=== PATIENT | female | born 1985 | race Caucasian/White ===

== ENCOUNTER 2016-09-03 22:35 | Emergency (ER) | payer OTHER ==
[2016-09-03 22:55] VITALS: BP 117/80; PULSE 70; TEMP 97.8; BMI 37.2
--- NOTE | 2016-09-03 23:31 | PDOC ---
History of Present Illness - General History Source: Patient Exam Limitations: No Limitations - History of Present Illness Initial Comments: 09/03/16 23:36 The patient is a 30 year old female with significant past medical history of asthma, gerd, IBS and chronic abdominal pain who presents to the ED for 2 weeks of abdominal pain, nausea and vomiting. Denies diarrhea. Patient also reports developing weakness and dizziness early this morning. The patient denies fever, chills, cough, SOB, chest pain, and palpitations. Allergies: NKDA Social History: No alcohol, tobacco, or drug use reported. Past Surgical History: None reported PCP: Dr. Angela Weinberg <Alejandra Arce - Last Filed: 09/03/16 23:37> - General History Source: Patient <LamonteEdmund roberts - Last Filed: 09/04/16 01:19> - General Chief Complaint: Pain Stated Complaint: PAIN, ACUTE Time Seen by Provider: 09/03/16 23:25 Past History <Alejandra Arce - Last Filed: 09/03/16 23:37> - Past Medical History Anemia: No Asthma: Yes (NO RECENT ATTACK) Cancer: No Cardiac Disorders: No CVA: No COPD: No CHF: No Dementia: No Diabetes: No GI Disorders: Yes (GERD,IBS,HIATAL HERNIA) Disorders: No HTN: No Hypercholesterolemia: No Liver Disease: No Seizures: No Thyroid Disease: No - Surgical History Abdominal Surgery: No Appendectomy: No Cardiac Surgery: No Cholecystectomy: No Lung Surgery: No Neurologic Surgery: No Orthopedic Surgery: No - Immunization History Immunization Up to Date: Yes - Psycho/Social/Smoking Cessation Hx Anxiety: No Suicidal Ideation: No Smoking Status: No Smoking History: Former smoker Have you smoked in the past 12 months: Yes Number of Cigarettes Smoked Daily: 5 If you are a former smoker, when did you quit?: 2017 Information on smoking cessation initiated: No 'Breaking Loose' booklet given: 06/27/12 Hx Alcohol Use: No Drug/Substance Use Hx: No Substance Use Type: None Hx Substance Use Treatment: No <Edmund Schumacher - Last Filed: 09/04/16 01:19> - Past Medical History Allergies/Adverse Reactions: Allergies Allergy/AdvReac Type Severity Reaction Status Date / Time shellfish derived Allergy Mild Swelling Verified 09/03/16 22:51 [Shellfish Derived] No Known Drug Allergies Allergy Verified 09/03/16 22:51 Home Medications: Ambulatory Orders Ondansetron [Zofran *Odt*] 4 mg SL TID #30 od.tablet 09/04/16 Pantoprazole Sodium [Protonix] 40 mg PO DAILY #30 tablet. 09/04/16 Review of Systems - Review of Systems Able to Perform ROS?: Yes Comments:: 09/03/16 23:36 CONSTITUTIONAL: +generalized weakness Absent: fever, no chills, no fatigue EYES: Absent: visual changes ENT: Absent: ear pain, no sore throat CARDIOVASCULAR: Absent: chest pain, no palpitations RESPIRATORY: Absent: cough, no SOB GI: +abdominal pain, nausea, vomiting Absent: no constipation, no diarrhea GENITOURINARY: Absent: dysuria, no frequency, no hematuria MUSCULOSKELETAL: Absent: back pain, no arthralgia, no myalgia SKIN: Absent: rash NEURO: +dizziness Absent: headache <Alejandra Arce - Last Filed: 09/03/16 23:37> *Physical Exam - Vital Signs Last Vital Signs Temp Pulse Resp BP Pulse Ox 97.8 F 70 17 117/80 98 09/03/16 22:51 09/03/16 22:51 09/03/16 22:51 09/03/16 22:51 09/03/16 22:51 - Physical Exam Comments: 09/03/16 23:36 GENERAL: Well-appearing, well-nourished. No apparent distress. HEENT: Normocephalic, atraumatic. PERRL, EOM intact. CARDIOVASCULAR: Normal S1, S2. Regular rate and rhythm. PULMONARY: Clear to auscultation bilaterally. ABDOMEN: Soft, non-distended, non-tender. EXTREMITIES: Normal ROM in all four extremities. No gross deformities. SKIN: Warm, dry. No rash NEUROLOGICAL: No focal neurological deficits. <Alejandra Arce - Last Filed: 09/03/16 23:37> - Vital Signs Last Vital Signs Temp Pulse Resp BP Pulse Ox 97.8 F 70 17 117/80 98 09/03/16 22:51 09/03/16 22:51 09/03/16 22:51 09/03/16 22:51 09/03/16 22:51 <Edmund Schumacher - Last Filed: 09/04/16 01:19> ED Treatment Course - LABORATORY CBC & Chemistry Diagram: 09/04/16 00:05 09/04/16 00:05 <Edmund Schumacher - Last Filed: 09/04/16 01:19> Medical Decision Making - Medical Decision Making 09/04/16 01:19 Dr. Schumacher: The scribe's documentation has been prepared under my direction and personally reviewed by me in its entirery. I confirm that the note above accurately reflects all work, treatment, procedures, and medical decision making performed by me. <Edmund Schumacher - Last Filed: 09/04/16 01:19> *DC/Admit/Observation/Transfer - Attestations Scribe Attestion: 09/03/16 23:36 Documentation prepared by Alejandra Arce, acting as medical transcription radiology for Edmund Schumacher MD <Alejandra Arce - Last Filed: 09/03/16 23:37> - Discharge Dispostion Admit: No <Edmund Schumacher - Last Filed: 09/04/16 01:19> Diagnosis at time of Disposition: Nausea - Discharge Dispostion Disposition: HOME Condition at time of disposition: Stable - Prescriptions Prescriptions: Pantoprazole Sodium [Protonix] 40 mg PO DAILY #30 tablet. Ondansetron [Zofran *Odt*] 4 mg SL TID #30 od.tablet - Referrals Referrals: Carolann Weinberg [Primary Care Provider] - - Patient Instructions Printed Discharge Instructions: DI for Nausea -- Adult - Post Discharge Activity Work/School Note: Back to Work
[2016-09-03] MEDS ORDERED: ONDANSETRON *ODT* 4 MG TABLET SL ONE (23:32)
[2016-09-03] MEDS ORDERED: ONDANSETRON *ODT* 4 MG TABLET ONE (23:37)
[2016-09-04 00:34] LABS: URINE APPEARANCE CLEAR; URINE BILIRUBIN NEGATIVE (NEGATIVE); URINE BLOOD NEGATIVE (NEGATIVE); URINE COLOR STRAW; URINE GLUCOSE (UA) NEGATIVE (NEGATIVE); URINE KETONE NEGATIVE (NEGATIVE); URINE LEUK ESTERASE NEGATIVE (NEGATIVE); URINE NITRITE NEGATIVE (NEGATIVE); URINE PROTEIN NEGATIVE (NEGATIVE); URINE UROBILINOGEN NEGATIVE E.U./dl (0.2-1.0)
[2016-09-04 00:35] LABS: BASOPHIL 0.5 % (0-2.0); EOSINOPHIL 2.4 % (0-4.5); MCH 26.9 pg (25.7-33.7); MCHC 32.4 g/dl (32.0-36.0); MEAN CELL VOLUME 83.2 fl (80-96); MEAN PLT VOLUME 8.7 fl (7.5-11.1); PLATELET COUNT 312 K/MM3 (134-434); RDW 13.9 % (11.6-15.6); WHITE BLOOD COUNT 8.7 K/mm3 (4.0-10.0)
[2016-09-04 01:10] LABS: ALBUMIN 3.7 g/dl (3.4-5.0); ALK PHOS 59 U/L (45-117); ANION GAP 9 (8-16); BILIRUBIN,TOTAL 0.2 mg/dL (0.2-1.0); CALCIUM 9.1 mg/dL (8.5-10.1); CO2 28 mmol/L (21-32); COCKROFT - GAULT 249.6365; CREATININE 0.5 mg/dL (0.55-1.02); GLUCOSE,RANDOM 82 mg/dL (74-106); SGOT/AST 7 U/L (15-37); SGPT/ALT 15 U/L (12-78); TOT PROT 6.9 g/dl (6.4-8.2)
== END 2016-09-04 01:37 | disposition home or self-care (01) ==
LOC: JER 22:35
DX: R11.0 Nausea (principal); K21.9 Gastro-esophageal reflux disease without esophagitis; J45.909 Unspecified asthma, uncomplicated
CPT/HCPCS: 36415; 80053; 81003; 82150; 83690; 83735; 84703; 85025; 99282-25

== ENCOUNTER 2016-10-07 10:19 | Emergency (ER) | payer OTHER ==
[2016-10-07 10:32] VITALS: BP 125/77; PULSE 83; TEMP 98.6; BMI 39.8
[2016-10-07] MEDS ORDERED: IBUPROFEN 600 MG TABLET (FP) PO ONE ×2 (11:34→11:45)
--- NOTE | 2016-10-07 11:41 | PDOC ---
History of Present Illness - General Chief Complaint: Injury Stated Complaint: FALL/ LT ARM, SWOLLEN Time Seen by Provider: 10/07/16 11:12 History Source: Patient Exam Limitations: No Limitations - History of Present Illness Initial Comments: 10/07/16 11:35 30 yr female with c/o trip and fall on wet steps this AM injured left hand. No LOC no dizzyness. Pt also with pain to both shins. Occurred: reports: this morning Severity: reports: mild Pain Location: reports: upper extremity (left hand ) Past History - Past Medical History Allergies/Adverse Reactions: Allergies Allergy/AdvReac Type Severity Reaction Status Date / Time shellfish derived Allergy Mild Swelling Verified 10/07/16 10:32 [Shellfish Derived] No Known Drug Allergies Allergy Verified 10/07/16 10:32 Home Medications: Ambulatory Orders NK [No Known Home Medication] 10/07/16 Anemia: No Asthma: Yes Cancer: No Cardiac Disorders: No CVA: No COPD: No CHF: No Dementia: No Diabetes: No GI Disorders: Yes (GERD,IBS,HIATAL HERNIA) Disorders: No HTN: No Hypercholesterolemia: No Liver Disease: No Seizures: No Thyroid Disease: No - Surgical History Abdominal Surgery: No Appendectomy: No Cardiac Surgery: No Cholecystectomy: No Lung Surgery: No Neurologic Surgery: No Orthopedic Surgery: No - Immunization History Immunization Up to Date: Yes - Psycho/Social/Smoking Cessation Hx Anxiety: No Suicidal Ideation: No Smoking Status: No Smoking History: Never smoked Have you smoked in the past 12 months: Yes Number of Cigarettes Smoked Daily: 5 If you are a former smoker, when did you quit?: 2016 'Breaking Loose' booklet given: 06/27/12 Hx Alcohol Use: Yes (SOCIAL) Drug/Substance Use Hx: No Substance Use Type: None Hx Substance Use Treatment: No Trauma Specific PMHX - Complaint Specific PMHX Arthritis: No Back Injury: No Neck Injury: No Hx Sacro Iliac Joint Dysfunction: No Review of Systems - Review of Systems Able to Perform ROS?: Yes Is the patient limited Swedish proficient: No Constitutional: No: Symptoms Reported HEENTM: No: Symptoms Reported Respiratory: No: Symptoms reported Cardiac (ROS): No: Symptoms Reported ABD/GI: No: Symptoms Reported : No: Symptoms Reported Musculoskeletal: Yes: Symptoms Reported, See HPI Integumentary: No: See HPI *Physical Exam - Vital Signs Last Vital Signs Temp Pulse Resp BP Pulse Ox 98.6 F 83 18 125/77 99 10/07/16 10:29 10/07/16 10:29 10/07/16 10:29 10/07/16 10:29 10/07/16 10:29 - Physical Exam General Appearance: Yes: Nourished, Appropriately Dressed HEENT: positive: EOMI, NAY Neck: positive: Supple. negative: Tender Respiratory/Chest: positive: Lungs Clear, Normal Breath Sounds Cardiovascular: positive: Regular Rhythm, Regular Rate Musculoskeletal: positive: Normal Inspection Extremity: positive: Normal Capillary Refill, Normal Inspection, Normal Range of Motion, Tender (base of left thumb thenar surface), Other (bruising to bilateral lower shins, no bony tenderness) Integumentary: positive: Normal Color, Dry, Warm Neurologic: positive: Fully Oriented, Alert, Normal Mood/Affect, Normal Response , Motor Strength 09/11 ED Treatment Course - RADIOLOGY Radiology Studies Ordered: Category Date Time Status HAND- LEFT [RAD] Stat Radiology 10/07/16 11:33 Ordered Medical Decision Making - Medical Decision Making 10/07/16 12:02 cc: slip and fall on the wet steps injured left hand will get xray to r/o fracture motrin for pain 10/07/16 12:04 *DC/Admit/Observation/Transfer Diagnosis at time of Disposition: Bruising Hand injury Qualifiers: Encounter type: initial encounter Laterality: left Qualified Code(s): S69.92XA - Unspecified injury of left wrist, hand and finger(s), initial encounter - Discharge Dispostion Disposition: HOME Condition at time of disposition: Good - Referrals Referrals: Carolann Weinberg [Primary Care Provider] - Vishal Perez MD [Staff Physician] - - Patient Instructions Additional Instructions: apply cool compresses to the areas of pain every 2hrs for 20 minutes take motrin for pain as directed follow with the orthopedist Dr. Perez for follow up if symptoms worsen or persist - Post Discharge Activity Work/School Note: Back to Work
== END 2016-10-07 12:12 | disposition home or self-care (01) ==
LOC: JERFT 10:19
DX: S69.92XA Unspecified injury of left wrist, hand and finger(s), initial encounter (principal); S60.222A Contusion of left hand, initial encounter; J45.909 Unspecified asthma, uncomplicated; K21.9 Gastro-esophageal reflux disease without esophagitis; Z87.891 Personal history of nicotine dependence; W10.9XXA Fall (on) (from) unspecified stairs and steps, initial encounter; Y93.89 Activity, other specified; Y92.9 Unspecified place or not applicable
CPT/HCPCS: 73130-TC-LT; 99281-25

== ENCOUNTER 2017-07-06 19:24 | Emergency (ER) | payer OTHER ==
[2017-07-06] MEDS ORDERED: ALBUTEROL SO4 2.5/IPRATROPIUM 0.5 INH SOL 3 ML VIAL.NEB. NEB ONE ×2 (19:35→20:29)
--- NOTE | 2017-07-06 19:35 | PDOC ---
Rapid Medical Evaluation Time Seen by Provider: 07/06/17 19:31 Medical Evaluation: Allergies Allergy/AdvReac Type Severity Reaction Status Date / Time shellfish derived Allergy Mild Swelling Verified 03/14/17 12:29 [Shellfish Derived] No Known Drug Allergies Allergy Verified 03/14/17 12:29 07/06/17 19:32 I have performed a brief in-person evaluation of this patient. The patient presents with a chief complaint of: works in school, symptoms x 4 days, told she has flu by PCP yesterday, given azithromycin and "something else ", c/o SOB, hx of asthma Pertinent physical exam findings: lungs ctab I have ordered the following: duoneb The patient will proceed to the ED for further evaluation. Discharge Disposition - Diagnosis Flu-like symptoms - Referrals - Patient Instructions - Post Discharge Activity
[2017-07-06 19:46] VITALS: BP 125/79; PULSE 85; TEMP 98.4; BMI 40.5
--- NOTE | 2017-07-06 21:45 | PDOC ---
History of Present Illness - General Chief Complaint: Cold Symptoms Stated Complaint: COLD SYMPTOMS Time Seen by Provider: 07/06/17 19:31 Past History - Past History Allergies/Adverse Reactions: Allergies shellfish derived [Shellfish Derived] Allergy (Mild, Verified 07/06/17 19:32) Swelling No Known Drug Allergies Allergy (Verified 07/06/17 19:32) Home Medications: Ambulatory Orders Amoxicillin - [Amoxicillin 500mg Capsule -] 500 mg PO BID #14 capsule 07/06/17 Fluticasone Prop 0.05% Nasal [Flonase -] 1 - 2 spray NS BID #1 spray.pump predniSONE [Deltasone -] 40 mg PO DAILY #8 tablet 07/06/17 Immunization Status Up to Date: Yes Tetanus Status: Less than 5 years - Social History Smoking History: No Smoking Status: Current some day smoker Number of Cigarettes Smoked Per Day: 3 Drug Use: none *Physical Exam - Vital Signs Last Vital Signs Temp Pulse Resp BP Pulse Ox 98.4 F 85 20 125/79 99 07/06/17 19:32 07/06/17 19:32 07/06/17 19:32 07/06/17 19:32 07/06/17 19:32 ED Treatment Course - Medications Given in the ED: ED Medications Discontinued Medications Generic Name Dose Route Start Last Admin Trade Name Tayler PRN Reason Stop Dose Admin Albuterol/Ipratropium 1 amp 07/06/17 19:35 07/06/17 20:32 Duoneb - NEB 07/06/17 19:36 1 amp ONCE ONE Administration *DC/Admit/Observation/Transfer Diagnosis at time of Disposition: Flu-like symptoms, Otitis media due to influenza Conjunctivitis Qualifiers: Conjunctivitis type: acute Acute conjunctivitis type: unspecified Laterality: bilateral Qualified Code(s): H10.33 - Unspecified acute conjunctivitis, bilateral - Discharge Dispostion Disposition: HOME Condition at time of disposition: Stable Admit: No - Referrals Referrals: Peter Bills MD [Staff Physician] - - Patient Instructions Printed Discharge Instructions: DI for Influenza -- Adult Additional Instructions: You have symptoms of the flu. Please take the prednisone for the next 4 days. Use her albuterol inhaler as prescribed to help with your chest tightness. Please take the amoxicillin twice a day for the ear infection. Your also prescribed Flonase. Please use twice daily each nostril to help with her congestion. Continue taking her Tamiflu, Mucinex. Please drink plenty of fluids. Eat a bland diet including plain rice, toast, applesauce, bananas. Follow-up with her primary care doctor in 1 week. Return to emergency department if you have worsening of your breathing, not eating or drinking well, shortness of breath, or have any changes in her symptoms. - Post Discharge Activity Forms/Work/School Notes: Back to Work
[2017-07-06] MEDS ORDERED: predniSONE 20 MG TABLET (UD) PO ONE (22:14)
[2017-07-06] MEDS ORDERED: predniSONE 20 MG TABLET (UD) ONE (22:17)
== END 2017-07-06 22:19 | disposition home or self-care (01) ==
LOC: JERFT 19:24 → JER 19:24 → JERFT 22:19
PROC: 3E0F7GC Introduction of Other Therapeutic Substance into Respiratory Tract, Via Natural or Artificial Opening (ICD-10-PCS; principal; 2017-07-06)
DX: J11.1 Influenza due to unidentified influenza virus with other respiratory manifestations (principal); J11.83 Influenza due to unidentified influenza virus with otitis media; F17.210 Nicotine dependence, cigarettes, uncomplicated; H10.33 Unspecified acute conjunctivitis, bilateral
CPT/HCPCS: 94640; 99281-25

== ENCOUNTER 2018-09-16 16:02 | Emergency (ER) | payer OTHER ==
[2018-09-16 16:07] VITALS: BP 144/83; PULSE 80; TEMP 97.9; BMI 40.7
--- NOTE | 2018-09-16 16:08 | PDOC ---
Rapid Medical Evaluation Medical Evaluation: Allergies Allergy/AdvReac Type Severity Reaction Status Date / Time shellfish derived Allergy Mild Swelling Verified 07/06/17 19:32 [Shellfish Derived] No Known Drug Allergies Allergy Verified 07/06/17 19:32 I have performed a brief in-person evaluation of this patient. The patient presents with a chief complaint of: hx asthma; C/o sore throat, losing voice x 4 days, +nasal congestion and mild cough as well Pertinent physical exam findings: In NAD, oropharynx clear, no exudates or tonsillar swelling I have ordered the following: Nothing The patient will proceed to the ED for further evaluation. 09/16/18 16:04
[2018-09-16] MEDS ORDERED: IBUPROFEN 400 MG TABLET (FP) PO ONE ×2 (16:49→16:52)
[2018-09-16] MEDS ORDERED: ALBUTEROL SO4 2.5/IPRATROPIUM 0.5 INH SOL 3 ML VIAL.NEB. NEB ONE ×4 (16:49→17:35)
--- NOTE | 2018-09-16 16:58 | PDOC ---
History of Present Illness - General Chief Complaint: Sore Throat Stated Complaint: sore throat, cough Time Seen by Provider: 09/16/18 16:04 History Source: Patient Exam Limitations: No Limitations - History of Present Illness Initial Comments: 09/16/18 16:58 Came for complaints of 3 days of fevers, moist cough with no phlegm production, and some chest tightness. Patient states has asthma and feels has mild exacerbation but has felt feverish also. 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 Timing/Duration: getting worse Severity: mild, moderate Associated Symptoms: reports: cough, fever/chills, malaise, shortness of breath Past History - Travel Traveled outside of the country in the last 30 days: No Close contact w/someone who was outside of country & ill: No - Past Medical History Allergies/Adverse Reactions: Allergies Allergy/AdvReac Type Severity Reaction Status Date / Time shellfish derived Allergy Mild Swelling Verified 09/16/18 16:07 [Shellfish Derived] No Known Drug Allergies Allergy Verified 09/16/18 16:07 Home Medications: Ambulatory Orders Albuterol 0.083% Nebulizer Nohemy [Ventolin 0.083% Nebulizer Soln -] 1 neb NEB Q4H PRN #30 vial 09/16/18 predniSONE [Deltasone -] 20 mg PO BID #8 tablet 09/16/18 Anemia: No Asthma: Yes Cancer: No Cardiac Disorders: No CVA: No COPD: No CHF: No DVT: No Dementia: No Diabetes: No GI Disorders: Yes (GERD,IBS,HIATAL HERNIA) Disorders: No HTN: No Hypercholesterolemia: No Liver Disease: No Seizures: No Thyroid Disease: No - Surgical History Abdominal Surgery: No Appendectomy: No Cardiac Surgery: No Cholecystectomy: No Lung Surgery: No Neurologic Surgery: No Orthopedic Surgery: No - Immunization History Immunization Up to Date: Yes - Suicide/Smoking/Psychosocial Hx Smoking Status: No Smoking History: Never smoked Have you smoked in the past 12 months: Yes Number of Cigarettes Smoked Daily: 3 If you are a former smoker, when did you quit?: 2017 Information on smoking cessation initiated: No 'Breaking Loose' booklet given: 06/27/12 Hx Alcohol Use: No Drug/Substance Use Hx: No Substance Use Type: None Hx Substance Use Treatment: No Review of Systems - Review of Systems Able to Perform ROS?: Yes Is the patient limited Thai proficient: Yes Constitutional: Yes: Symptoms Reported, See HPI, Malaise. No: Fever Respiratory: Yes: Symptoms reported, See HPI, Cough, Shortness of Breath, Wheezing Cardiac (ROS): No: Symptoms Reported ABD/GI: No: Symptoms Reported : No: Symptoms Reported All Other Systems: Reviewed and Negative *Physical Exam - Vital Signs Last Vital Signs Temp Pulse Resp BP Pulse Ox 97.9 F 80 17 144/83 98 09/16/18 16:05 09/16/18 16:05 09/16/18 16:05 09/16/18 16:05 09/16/18 16:05 - Physical Exam General Appearance: Yes: Nourished, Appropriately Dressed, Apparent Distress, Mild Distress, Moderate Distress HEENT: positive: NAY, TMs Normal (congested but landmarks easily visualized), Pharynx Normal, Nasal Congestion, Rhinorrhea, Sinus Tenderness Neck: positive: Supple, Lymphadenopathy (R), Lymphadenopathy (L). negative: Tender Respiratory/Chest: positive: Decreased Breath Sounds. negative: Lungs Clear Gastrointestinal/Abdominal: positive: Soft. negative: Tender Extremity: positive: Normal Capillary Refill Integumentary: positive: Normal Color, Dry, Warm, Pale Neurologic: positive: documentum consultant II-XII NML intact, Fully Oriented, Alert, Normal Mood/ Affect, Normal Response, Motor Strength 5/5 Medical Decision Making - Medical Decision Making 09/16/18 17:53 Much improved after 2 DuoNeb's and prednisone. Ready for discharge, will continue conservative treatment for viral illness with asthmatic treatment as well *DC/Admit/Observation/Transfer Diagnosis at time of Disposition: Upper respiratory infection, viral - Discharge Dispostion Disposition: HOME Condition at time of disposition: Stable Decision to Admit order: No - Referrals Referrals: Carolann Weinberg [Primary Care Provider] - - Patient Instructions Printed Discharge Instructions: DI for Viral Upper Respiratory Infection -- Adult Additional Instructions: Rest, drink lots of fluids: Teas, water, soups, Pedialyte Saltwater gargles Steamy showers/seem to face break up mucus Avoid contact with others until fevers and cough resolved Lots of handwashing and good hygiene Continue [id number] medications for symptomatic relief Tylenol or Motrin for fever and pain Continue albuterol nebulizers every 4-6 hours for the next 2 days then as needed for continued cough Prednisone as directed until completed Followup with private physician in one to 2 days Return to emergency department / pediatric hospital for worsened symptoms, fevers, dehydration - Post Discharge Activity Forms/Work/School Notes: Back to Work
[2018-09-16] MEDS ORDERED: predniSONE 20 MG TABLET (UD) PO ONE (17:18)
[2018-09-16] MEDS ORDERED: predniSONE 20 MG TABLET (UD) ONE (17:35)
== END 2018-09-16 18:02 | disposition home or self-care (01) ==
LOC: JERFT 16:02
PROC: 3E0F7GC Introduction of Other Therapeutic Substance into Respiratory Tract, Via Natural or Artificial Opening (ICD-10-PCS; principal; 2018-09-16)
PROC: 3E0F7GC Introduction of Other Therapeutic Substance into Respiratory Tract, Via Natural or Artificial Opening (ICD-10-PCS; 2018-09-16)
DX: J06.9 Acute upper respiratory infection, unspecified (principal); B97.89 Other viral agents as the cause of diseases classified elsewhere; J45.909 Unspecified asthma, uncomplicated; Z87.19 Personal history of other diseases of the digestive system
CPT/HCPCS: 94640; 99281-25

== ENCOUNTER 2019-06-08 22:04 | Emergency (ER) | payer OTHER ==
[2019-06-08 22:15] VITALS: BP 158/88; PULSE 88; TEMP 98.5; BMI 41.6
[2019-06-09] MEDS ORDERED: KETOROLAC TROMETHAMINE 30 MG/1 ML VIAL IM ONE (00:19)
--- NOTE | 2019-06-09 00:22 | PDOC ---
History of Present Illness - General Chief Complaint: Back Pain Stated Complaint: BACK PAIN Time Seen by Provider: 06/08/19 23:18 History Source: Patient Exam Limitations: No Limitations - History of Present Illness Initial Comments: 06/09/19 00:37 CHIEF COMPLAINT: Lower back pain HISTORY OF PRESENT ILLNESS:33-year-old woman presents emergency department for evaluation of midline pain that radiates to the right side. She denies any neurosensory deficits, incontinence of bladder or bowel, urinary retention, saddle anesthesia, foot drop, history of IV drug use or cancer. Patient reports pain started last night prior to going to bed on 06/07 prior to going to bed but was worse upon awaking on 06/08. Patient is taking 400 mg of Motrin, perform stretching exercises and taking warm baths with minimal relief of her pain. REVIEW OF SYSTEMS: GENERAL: Afebrile, denies any weakness RESPIRATORY: No cough, wheezing, or hemoptysis. CARDIAC: No chest pain or shortness of breath MUSCULOSKELETAL: Pain to generalized lower back. No point tenderness. Pain worse on right than left. SKIN : No erythema, no bruising, no deformity. GI/: Denies any abdominal pain, no urinary difficulty, incontinence or urinary retention. RECTAL: Denies any difficulty this A.m. NEUROLOGICAL: Denies any numbness or tingling. No neurosensory deficits. PHYSICAL EXAM: GENERAL: The patient is awake, alert, and fully oriented, in no acute distress. RESPIRATORY: Lungs clear bilaterally, no rhonchi wheezes or crackles CARDIAC: S1-S2 audible, no murmur rub or gallop MUSCULOSKELETAL: Pain to generalized lower back, nonradiating, no tingling or sensory deficit. Less than 2 second cap refill, +2 pedal pulses. No spinal point tenderness. Normal reflexive and no deficits to sensation or strength. GI/: Abdomen soft, nontender, nondistended. No rebound tenderness. No masses palpable. RECTAL: Deferred patient with no neurological findings SKIN: Warm, Dry, normal turgor, no erythema, no edema no bruising. Past History - Past Medical History Allergies/Adverse Reactions: Allergies Allergy/AdvReac Type Severity Reaction Status Date / Time shellfish derived Allergy Mild Swelling Verified 06/08/19 22:11 [Shellfish Derived] No Known Drug Allergies Allergy Verified 06/08/19 22:11 Home Medications: Ambulatory Orders Albuterol 0.083% Nebulizer Nohemy [Ventolin 0.083% Nebulizer Soln -] 1 neb NEB Q4H PRN #30 vial 09/16/18 predniSONE [Deltasone -] 20 mg PO BID #8 tablet 09/16/18 Naproxen [Naprosyn -] 500 mg PO BID #14 tablet 06/09/19 Anemia: No Asthma: Yes Cancer: No Cardiac Disorders: No CVA: No COPD: No CHF: No DVT: No Dementia: No Diabetes: No GI Disorders: Yes (GERD,IBS,HIATAL HERNIA) Disorders: No HTN: No Hypercholesterolemia: No Liver Disease: No Seizures: No Thyroid Disease: No - Surgical History Abdominal Surgery: No Appendectomy: No Cardiac Surgery: No Cholecystectomy: No Lung Surgery: No Neurologic Surgery: No Orthopedic Surgery: No - Immunization History Immunization Up to Date: Yes - Psycho Social/Smoking Cessation Hx Smoking Status: No Smoking History: Never smoked Have you smoked in the past 12 months: Yes Number of Cigarettes Smoked Daily: 3 If you are a former smoker, when did you quit?: 2017 Information on smoking cessation initiated: No 'Breaking Loose' booklet given: 06/27/12 Hx Alcohol Use: No Drug/Substance Use Hx: No Substance Use Type: None Hx Substance Use Treatment: No Trauma Specific PMHX - Complaint Specific PMHX Arthritis: No Back Injury: No Neck Injury: No Hx Sacro Iliac Joint Dysfunction: No *Physical Exam - Vital Signs Last Vital Signs Temp Pulse Resp BP Pulse Ox 98.5 F 88 20 158/88 99 06/08/19 22:12 06/08/19 22:12 06/08/19 22:12 06/08/19 22:12 06/08/19 22:12 Medical Decision Making - Medical Decision Making 06/09/19 00:36 A/P: 33-year-old woman with lower back pain for 2 days No midline bony tenderness No neurosensory deficits Able to perform straight leg raises without difficulty Pain worsens with flexion of the right hip. Ambulatory with steady gait Toradol 30 mg IM now Discharge home with prescription for Naprosyn Discharge - Discharge Information Problems reviewed: Yes Clinical Impression/Diagnosis: Lower back pain Qualifiers: Chronicity: acute Back pain laterality: midline Sciatica presence: without sciatica Qualified Code(s): M54.5 - Low back pain Condition: Stable Disposition: HOME - Admission No - Additional Discharge Information Prescriptions: Naproxen [Naprosyn -] 500 mg PO BID #14 tablet - Follow up/Referral Referrals: Carolann Weinberg [Primary Care Provider] - - Patient Discharge Instructions Additional Instructions: Take Tylenol as needed for pain. Follow manufacturers instructions for appropriate dosage. Naproxen 500mg twice a day as needed for pain. Do not take Motrin/Advil with this medicine. Try not to walk or bear weight as much as possible for the next 3 days. Warm moist heat applied to your back may help alleviate pain. Return to emergency department for numbness or tingling to the genitals or buttocks, worsening pain, or any other concerns. Thank you very much for choosing us to provide your emergent healthcare needs. - Post Discharge Activity
[2019-06-09] MEDS ORDERED: KETOROLAC TROMETHAMINE 30 MG/1 ML VIAL ONE (00:33)
== END 2019-06-09 00:39 | disposition home or self-care (01) ==
LOC: JER 22:04
PROC: 3E0233Z Introduction of Anti-inflammatory into Muscle, Percutaneous Approach (ICD-10-PCS; principal; 2019-06-08)
DX: M54.5 Low back pain (principal); J45.909 Unspecified asthma, uncomplicated; Z87.19 Personal history of other diseases of the digestive system; Z91.013 Allergy to seafood
CPT/HCPCS: 99282-25

== ENCOUNTER 2020-07-16 19:48 | Emergency (ER) | payer OTHER ==
[2020-07-16 20:17] VITALS: TEMP 99.1; BMI 44.9
[2020-07-16] MEDS ORDERED: FAMOTIDINE 20 MG TABLET PO ONE (21:09)
[2020-07-16] MEDS ORDERED: diphenhydrAMINE HCL 25 MG CAPSULE (FP) PO ONE ×2 (21:09→21:32)
[2020-07-16] MEDS ORDERED: predniSONE 20 MG TABLET (UD) PO ONE (21:14)
[2020-07-16] MEDS ORDERED: FAMOTIDINE 20 MG TABLET ONE (21:32)
[2020-07-16] MEDS ORDERED: predniSONE 20 MG TABLET (UD) ONE (21:32)
[2020-07-16 22:33] VITALS: BP 124/77; PULSE 78
== END 2020-07-16 22:50 | disposition home or self-care (01) ==
LOC: JER 19:48
DX: T78.40XA Allergy, unspecified, initial encounter (principal)
CPT/HCPCS: 99283-25

== ENCOUNTER 2020-12-15 19:31 | Emergency (ER) | payer OTHER ==
[2020-12-15 20:20] VITALS: BP 117/82; PULSE 81; TEMP 97.7; BMI 44.2
[2020-12-15] MEDS ORDERED: valACYclovir HCL 1000 MG TABLET PO ONE (23:03)
[2020-12-15] MEDS ORDERED: LEVONORGESTREL 1.5 MG TABLET (PLAN B ONE-STEP) PO (23:19)
[2020-12-16] MEDS ORDERED: LEVONORGESTREL 1.5 MG TABLET (PLAN B ONE-STEP) PO (00:01)
[2020-12-16] MEDS ORDERED: valACYclovir HCL 500 MG TABLET (FP) ONE (00:01)
[2020-12-16 00:25] LABS: EPI CELLS >36 /uL (0-25.1); HYALINE CASTS 1 /uL (0-3.1); URINE APPEARANCE CLOUDY; URINE BACTERIA 2338 /uL (0-1359); URINE BILIRUBIN NEGATIVE (NEGATIVE); URINE COLOR YELLOW; URINE GLUCOSE (UA) NEGATIVE (NEGATIVE); URINE KETONE NEGATIVE (NEGATIVE); URINE LEUK ESTERASE 1+ (NEGATIVE); URINE NITRITE NEGATIVE (NEGATIVE); URINE PROTEIN NEGATIVE (NEGATIVE); URINE UROBILINOGEN 0.2 mg/dL (0.2-1.0); URINE WBC 59 /uL (0-25.8)
[2020-12-16 00:42] LABS: HIV INTERPRETATION NEGATIVE (NEGATIVE)
== END 2020-12-16 00:15 | disposition home or self-care (01) ==
LOC: JER 19:31
DX: B00.82 Herpes simplex myelitis (principal); Z11.3 Encounter for screening for infections with a predominantly sexual mode of transmission
CPT/HCPCS: 36415; 81003; 86780; 87086; 87389; 87491; 87529; 87591; 99283-25

== ENCOUNTER 2021-03-11 14:30 | Emergency (ER) | payer OTHER ==
[2021-03-11 14:42] VITALS: BP 116/83; PULSE 72; TEMP 98; BMI 39.4
[2021-03-11 18:41] LABS: BASO % 0.5 % (0-2.0); EOS % 2.1 % (0-4.5); HEMATOCRIT 36.7 % (32.4-45.2); HEMOGLOBIN 12.3 GM/dL (10.7-15.3); LYMPH % 22.7 % (8-40); MCH 26.7 pg (25.7-33.7); MCHC 33.3 g/dl (32.0-36.0); MEAN CELL VOLUME 80.1 fl (80-96); MEAN PLT VOLUME 7.7 fl (7.5-11.1); MONO % 4.8 % (3.8-10.2); NEUT % 69.9 % (42.8-82.8); PLATELET COUNT 367 10^3/uL (134-434); RBC 4.58 M/mm3 (3.60-5.2); RDW 14.4 % (11.6-15.6); WHITE BLOOD COUNT 9.9 K/mm3 (4.0-10.0)
[2021-03-11 18:54] LABS: ALBUMIN 3.4 g/dl (3.4-5.0); CALCIUM 8.6 mg/dL (8.5-10.1)
[2021-03-11 18:55] LABS: BLOOD UREA NITROGEN 6.6 mg/dL (7-18)
[2021-03-11 18:58] LABS: CREATININE 0.6 mg/dL (0.55-1.3)
[2021-03-11 18:59] LABS: BILIRUBIN,TOTAL 0.4 mg/dL (0.2-1)
== END 2021-03-11 22:42 ==
LOC: JER 14:30
DX: R22.0 Localized swelling, mass and lump, head (principal); R05.1 Acute cough
CPT/HCPCS: 36415; 70491-TC; 80053; 84703; 85025; 86308; 87804; 99285-25; C9803; Q9967; U0003; U0005

== ENCOUNTER 2021-08-21 23:56 | Emergency (ER) | payer OTHER ==
[2021-08-22 00:53] VITALS: BP 123/80; PULSE 77; TEMP 97.8; BMI 42.2
[2021-08-22] MEDS ORDERED: LIDOCAINE HCL 2% JELLY 10 ML CARTRIDGE PR ONE (01:17)
[2021-08-22] MEDS ORDERED: LIDOCAINE HCL 2% JELLY 10 ML CARTRIDGE ONE (01:30)
== END 2021-08-22 02:47 | disposition home or self-care (01) ==
LOC: JER 23:56
DX: K12.30 Oral mucositis (ulcerative), unspecified (principal)
CPT/HCPCS: 99282-25

== ENCOUNTER 2022-04-24 07:36 | Emergency (ER) | payer OTHER ==
[2022-04-24 08:02] VITALS: BP 126/87; PULSE 87; RESP 18; TEMP 97.9; BMI 41.6
[2022-04-24] MEDS ORDERED: KETOROLAC TROMETHAMINE 30 MG/1 ML VIAL IM ONE (08:14)
[2022-04-24] MEDS ORDERED: KETOROLAC TROMETHAMINE 30 MG/1 ML VIAL ONE (08:35)
== END 2022-04-24 08:51 | disposition home or self-care (01) ==
LOC: JER 07:36
PROC: 3E0233Z Introduction of Anti-inflammatory into Muscle, Percutaneous Approach (ICD-10-PCS; principal; 2022-04-24)
DX: S20.213A Contusion of bilateral front wall of thorax, initial encounter (principal); W22.8XXA Striking against or struck by other objects, initial encounter
CPT/HCPCS: 71046-TC-FY; 93005; 93010; 99284-25

== ENCOUNTER 2022-07-17 19:30 | Emergency (ER) | payer OTHER ==
[2022-07-17 19:46] VITALS: BP 124/61; PULSE 79; RESP 18; TEMP 98.1; BMI 46.3
[2022-07-17 20:44] LABS: BASO % 0.9 % (0-2.0); EOS % 2.7 % (0-4.5); HEMATOCRIT 38.3 % (32.4-45.2); HEMOGLOBIN 12.2 GM/dL (10.7-15.3); MCH 25.7 pg (25.7-33.7); MCHC 31.9 g/dl (32.0-36.0); MEAN CELL VOLUME 80.6 fl (80-96); MEAN PLT VOLUME 7.6 fl (7.5-11.1); MONO % 4.9 % (3.8-10.2); NEUT % 61.5 % (42.8-82.8); PLATELET COUNT 421 10^3/uL (134-434); RBC 4.75 M/mm3 (3.60-5.2); RDW 14.7 % (11.6-15.6); WHITE BLOOD COUNT 11.3 K/mm3 (4.0-10.0)
[2022-07-17 21:08] LABS: ALBUMIN 3.7 g/dl (3.4-5.0); BLOOD UREA NITROGEN 10.4 mg/dL (7-18)
[2022-07-17 21:11] LABS: CREATININE 0.7 mg/dL (0.55-1.3)
[2022-07-17 21:12] LABS: BILIRUBIN,TOTAL 0.1 mg/dL (0.2-1); TOT PROT 7.3 g/dl (6.4-8.2)
== END 2022-07-17 22:08 | disposition home or self-care (01) ==
LOC: JER 19:30
DX: R07.9 Chest pain, unspecified (principal)
CPT/HCPCS: 36415; 71046-TC-FY; 80053; 83735; 84443; 84484; 84703; 85025; 93005; 93010; 99285-25

== ENCOUNTER 2022-09-02 11:08 | Emergency (ER) | payer OTHER ==
[2022-09-02 11:23] VITALS: BP 105/84; PULSE 80; RESP 18; TEMP 98.4; BMI 43.4
[2022-09-02] MEDS ORDERED: DEXAMETHASONE SOD PHOSPHATE 10 MG/1 ML VIAL IM ONE (11:44)
[2022-09-02] MEDS ORDERED: diphenhydrAMINE HCL 25 MG CAPSULE (FP) PO ONE ×2 (11:44→11:51)
[2022-09-02] MEDS ORDERED: DEXAMETHASONE 4 MG TABLET (FP) PO ONE (12:05)
[2022-09-02] MEDS ORDERED: DEXAMETHASONE 4 MG TABLET (FP) ONE (12:08)
== END 2022-09-02 14:03 | disposition home or self-care (01) ==
LOC: JER 11:08
DX: R13.10 Dysphagia, unspecified (principal); R47.01 Aphasia; R07.9 Chest pain, unspecified; T78.40XA Allergy, unspecified, initial encounter
CPT/HCPCS: 93005; 93010; 99283-25

== ENCOUNTER 2022-10-27 13:27 | Emergency (ER) | payer OTHER ==
[2022-10-27 13:37] VITALS: BP 136/79; PULSE 78; RESP 20; TEMP 98; BMI 40.8
[2022-10-27] MEDS ORDERED: ACETAMINOPHEN 1000 MG/100 ML BAG IVPB ONE (14:00)
[2022-10-27] MEDS ORDERED: FAMOTIDINE 20 MG/50 ML IVPB 20 MG/50 ML MG IVPB ONE (14:03)
[2022-10-27] MEDS ORDERED: MAG HYDROX/AL HYDROX/SIMETH 30 ML UNIT-DOSE CUP PO ONE (14:03)
[2022-10-27] MEDS ORDERED: ACETAMINOPHEN INJECTION 100 ML IVPB ONE (14:10)
[2022-10-27] MEDS ORDERED: MAG HYDROX/AL HYDROX/SIMETH 30 ML UNIT-DOSE CUP ONE (14:10)
[2022-10-27] MEDS ORDERED: FAMOTIDINE 10 MG/ML VIAL IVPB ONE (14:11)
[2022-10-27 14:17] LABS: BASO % 0.6 % (0-2.0); EOS % 1.5 % (0-4.5); HEMATOCRIT 38.1 % (32.4-45.2); HEMOGLOBIN 12.4 GM/dL (10.7-15.3); LYMPH % 22.9 % (8-40); MCH 26.8 pg (25.7-33.7); MCHC 32.5 g/dl (32.0-36.0); MEAN CELL VOLUME 82.5 fl (80-96); MEAN PLT VOLUME 8.2 fl (7.5-11.1); MONO % 4.9 % (3.8-10.2); NEUT % 70.1 % (42.8-82.8); PLATELET COUNT 369 10^3/uL (134-434); RBC 4.63 M/mm3 (3.60-5.2); RDW 14.8 % (11.6-15.6); WHITE BLOOD COUNT 10.4 K/mm3 (4.0-10.0)
[2022-10-27 14:27] LABS: POTASSIUM 4.1 mmol/L (3.5-5.1)
[2022-10-27 14:29] LABS: ALBUMIN 3.6 g/dl (3.4-5.0); BLOOD UREA NITROGEN 8.1 mg/dL (7-18); CALCIUM 9.1 mg/dL (8.5-10.1)
[2022-10-27 14:32] LABS: CREATININE 0.6 mg/dL (0.55-1.3)
[2022-10-27 14:34] LABS: BILIRUBIN,TOTAL 0.5 mg/dL (0.2-1); TOT PROT 6.9 g/dl (6.4-8.2)
[2022-10-27] MEDS ORDERED: ALBUTEROL SO4 HFA INHALER IH ONE ×2 (15:19→15:24)
== END 2022-10-27 16:00 | disposition home or self-care (01) ==
LOC: JER 13:27
PROC: 3E033NZ Introduction of Analgesics, Hypnotics, Sedatives into Peripheral Vein, Percutaneous Approach (ICD-10-PCS; principal; 2022-10-27)
DX: R07.89 Other chest pain (principal)
CPT/HCPCS: 36415; 71046-TC-FY; 80053; 84484; 84703; 85025; 93005; 93010; 99285-25

== ENCOUNTER 2023-01-09 22:29 | Emergency (ER) | payer OTHER ==
[2023-01-09 22:39] VITALS: BP 135/93; PULSE 88; RESP 16; TEMP 98.2; BMI 42.1
== END 2023-01-09 23:03 | disposition home or self-care (01) ==
LOC: FER 22:29
DX: F41.9 Anxiety disorder, unspecified (principal); R00.0 Tachycardia, unspecified; R05.9 Cough, unspecified; J34.89 Other specified disorders of nose and nasal sinuses
CPT/HCPCS: 99282-25

== ENCOUNTER 2023-06-12 02:12 | Emergency (ER) | payer OTHER ==
[2023-06-12 02:19] VITALS: BP 126/83; PULSE 91; RESP 20; TEMP 98.4; BMI 42.1
[2023-06-12] MEDS ORDERED: DEXAMETHASONE SOD PHOSPHATE 10 MG/1 ML VIAL IM ONE (02:20)
[2023-06-12] MEDS ORDERED: DEXAMETHASONE SOD PHOSPHATE 10 MG/1 ML VIAL ONE (02:30)
[2023-06-12] MEDS ORDERED: diphenhydrAMINE HCL 25 MG CAPSULE (FP) PO ONE ×3 (02:32→02:39)
[2023-06-12] MEDS ORDERED: FAMOTIDINE 20 MG TABLET PO ONE (02:32)
[2023-06-12] MEDS ORDERED: FAMOTIDINE 20 MG TABLET ONE (02:34)
[2023-06-12] MEDS ORDERED: RACEPINEPHRINE IH SOL 2.25% 11.25 MG/0.5 ML VIAL NEB ONE (02:34)
[2023-06-12] MEDS ORDERED: RACEPINEPHRINE IH SOL 2.25% 11.25 MG/0.5 ML VIAL IH SCH (02:45)
[2023-06-12 03:50] LABS: PH,URINE 6.5 (5.0-8.0); URINE APPEARANCE CLEAR; URINE BILIRUBIN NEGATIVE (NEGATIVE); URINE COLOR YELLOW; URINE GLUCOSE (UA) NEGATIVE (NEGATIVE); URINE KETONE NEGATIVE (NEGATIVE); URINE LEUK ESTERASE NEGATIVE (NEGATIVE); URINE NITRITE NEGATIVE (NEGATIVE); URINE PROTEIN NEGATIVE (NEGATIVE); URINE UROBILINOGEN 0.2 mg/dL (0.2-1.0)
[2023-06-12 03:53] LABS: HCG,QUALITATIVE URINE Negative
== END 2023-06-12 06:49 | disposition home or self-care (01) ==
LOC: JER 02:12
PROC: 3E023GC Introduction of Other Therapeutic Substance into Muscle, Percutaneous Approach (ICD-10-PCS; principal; 2023-06-12)
DX: R06.02 Shortness of breath (principal); R07.9 Chest pain, unspecified; R06.2 Wheezing; T78.1XXA Other adverse food reactions, not elsewhere classified, initial encounter
CPT/HCPCS: 81003; 84703; 99284-25; J1100

== ENCOUNTER 2023-06-25 13:58 | Emergency (ER) | payer SELFPAY ==
[2023-06-25 14:08] VITALS: RESP 18; BMI 41.0
[2023-06-25] MEDS ORDERED: FAMOTIDINE 10 MG TABLET ONE (16:26)
[2023-06-25] MEDS: FAMOTIDINE 10 MG TABLET PO ONE (16:32)
[2023-06-25] MEDS ORDERED: INSULIN (NOVOLOG) ASPART 100 UNITS/ML 10ML VIAL ONE (16:49)
[2023-06-25] MEDS ORDERED: MAG HYDROX/AL HYDROX/SIMETH 30 ML UNIT-DOSE CUP ONE (16:52)
[2023-06-25] MEDS ORDERED: ACETAMINOPHEN 325 MG TABLET (FP) ONE (16:53)
[2023-06-25] MEDS: MAG HYDROX/AL HYDROX/SIMETH 30 ML UNIT-DOSE CUP PO ONE (16:56)
[2023-06-25] MEDS: ACETAMINOPHEN 1000 MG/100 ML BAG IVPB ONE (16:56)
[2023-06-25] MEDS: ACETAMINOPHEN 325 MG TABLET (FP) PO ONE (16:56)
[2023-06-25 17:12] LABS: BASO % 0.6 % (0-2.0); EOS % 1.4 % (0-4.5); HEMATOCRIT 37.6 % (32.4-45.2); HEMOGLOBIN 12.4 GM/dL (10.7-15.3); LYMPH % 14.4 % (8-40); MCH 26.8 pg (25.7-33.7); MCHC 32.9 g/dl (32.0-36.0); MEAN CELL VOLUME 81.5 fl (80-96); MEAN PLT VOLUME 7.6 fl (7.5-11.1); MONO % 3.3 % (3.8-10.2); NEUT % 80.3 % (42.8-82.8); PLATELET COUNT 389 10^3/uL (134-434); RBC 4.62 M/mm3 (3.60-5.2); RDW 14.4 % (11.6-15.6); WHITE BLOOD COUNT 11.1 K/mm3 (4.0-10.0)
[2023-06-25 17:25] LABS: POTASSIUM 4.3 mmol/L (3.5-5.1)
[2023-06-25 17:27] LABS: BLOOD UREA NITROGEN 7.7 mg/dL (7-18); CALCIUM 9.4 mg/dL (8.5-10.1)
[2023-06-25 17:28] LABS: ALBUMIN 3.5 g/dl (3.4-5.0)
[2023-06-25 17:30] LABS: CREATININE 0.6 mg/dL (0.55-1.3)
[2023-06-25 17:32] LABS: TOT PROT 7.1 g/dl (6.4-8.2)
[2023-06-25 17:33] LABS: BILIRUBIN,TOTAL 0.4 mg/dL (0.2-1)
[2023-06-25 17:53] VITALS: BP 117/73; PULSE 75; TEMP 98.2
== END 2023-06-25 18:00 | disposition home or self-care (01) ==
LOC: JER 13:58
DX: T78.40XA Allergy, unspecified, initial encounter (principal); R07.9 Chest pain, unspecified; U07.1 COVID-19
CPT/HCPCS: 0241U-QW; 36415; 71046-TC-FY; 80053; 84484; 84703; 85025; 93005; 93010; 99285-25

== ENCOUNTER 2023-12-06 23:07 | Emergency (ER) | payer OTHER ==
[2023-12-06 23:17] VITALS: BP 112/78; PULSE 83; RESP 20; TEMP 97.7; BMI 40.5
[2023-12-07] MEDS ORDERED: METHOCARBAMOL 500 MG TABLET ONE (00:21)
[2023-12-07] MEDS ORDERED: KETOROLAC TROMETHAMINE 15 MG/ML VIAL ONE (00:21)
[2023-12-07] MEDS: METHOCARBAMOL 500 MG TABLET PO ONE (00:27)
[2023-12-07] MEDS: KETOROLAC TROMETHAMINE 15 MG/ML VIAL IM ONE (00:27)
[2023-12-07 00:34] LABS: PH,URINE 5.5 (5.0-8.0); URINE APPEARANCE CLEAR; URINE BILIRUBIN NEGATIVE (NEGATIVE); URINE COLOR YELLOW; URINE GLUCOSE (UA) NEGATIVE (NEGATIVE); URINE KETONE NEGATIVE (NEGATIVE); URINE LEUK ESTERASE NEGATIVE (NEGATIVE); URINE NITRITE NEGATIVE (NEGATIVE); URINE PROTEIN NEGATIVE (NEGATIVE); URINE UROBILINOGEN 0.2 mg/dL (0.2-1.0)
== END 2023-12-07 01:25 | disposition home or self-care (01) ==
LOC: JER 23:07
PROC: 3E0133Z Introduction of Anti-inflammatory into Subcutaneous Tissue, Percutaneous Approach (ICD-10-PCS; principal; 2023-12-07)
DX: M62.830 Muscle spasm of back (principal)
CPT/HCPCS: 81003; 84703; 99284-25

== ENCOUNTER 2024-01-10 19:39 | Emergency (ER) | payer OTHER ==
[2024-01-10 19:45] VITALS: BP 121/85; PULSE 86; RESP 18; TEMP 98.1; BMI 40.1
[2024-01-10] MEDS ORDERED: ALBUTEROL SO4 2.5/IPRATROPIUM 0.5 INH SOL 3 ML VIAL.NEB. NEB ONE (20:47)
[2024-01-10] MEDS ORDERED: predniSONE 20 MG TABLET (UD) ONE (20:48)
[2024-01-10] MEDS: predniSONE 20 MG TABLET (UD) PO ONE (21:04)
[2024-01-10] MEDS: ALBUTEROL SO4 2.5/IPRATROPIUM 0.5 INH SOL 3 ML VIAL.NEB. NEB ONE (21:04)
== END 2024-01-10 21:56 | disposition home or self-care (01) ==
LOC: JER 19:39
PROC: 3E0F7GC Introduction of Other Therapeutic Substance into Respiratory Tract, Via Natural or Artificial Opening (ICD-10-PCS; principal; 2024-01-10)
DX: J45.909 Unspecified asthma, uncomplicated (principal); R07.81 Pleurodynia; R05.9 Cough, unspecified
CPT/HCPCS: 71046-TC-FY; 99285-25

== ENCOUNTER 2024-02-17 16:54 | Emergency (ER) | payer OTHER ==
[2024-02-17 17:02] VITALS: BP 134/85; PULSE 79; RESP 19; TEMP 98.4; BMI 40.1
[2024-02-17] MEDS ORDERED: KETOROLAC TROMETHAMINE 30 MG/1 ML VIAL ONE (17:48)
[2024-02-17] MEDS: KETOROLAC TROMETHAMINE 30 MG/1 ML VIAL IM ONE (18:31)
[2024-02-17 20:03] LABS: HIV INTERPRETATION NEGATIVE (NEGATIVE)
== END 2024-02-17 18:41 | disposition home or self-care (01) ==
LOC: JER 16:54
PROC: 3E0133Z Introduction of Anti-inflammatory into Subcutaneous Tissue, Percutaneous Approach (ICD-10-PCS; principal; 2024-02-17)
DX: R07.89 Other chest pain (principal); R06.02 Shortness of breath
CPT/HCPCS: 36415; 86803; 87389; 93005; 93010; 99284-25